=== PATIENT | female | born 1980 | race Caucasian/White ===

== ENCOUNTER → 2018-02-20 14:25 | Outpatient (CLI) | payer BC, SELFPAY ==
[2018-02-24 08:27] LABS: HPV Reflexed? NOT INDICATED
== END ==
PROVIDERS: Visit Provider Obstetrics & Gynecology
DX: Z12.4 Encounter for screening for malignant neoplasm of cervix (principal)
CPT/HCPCS: 88175; G0145

== ENCOUNTER 2018-04-18 09:03 | Emergency (ER) | payer BC, SELFPAY ==
[2018-04-18 09:04] VITALS: BP 129/75; PULSE 93; RESP 16; TEMP 36.8; O2SAT 97; BMI 25.9
--- NOTE | 2018-04-18 09:13 | RAD_ITS ---
STUDY: X-RAY - LUMBAR SPINE REASON FOR EXAM: Female, 37 years old. Low back pain following a fall. TECHNIQUE: 3 view(s) of the lumbar spine were obtained. COMPARISON: None FINDINGS: Normal lumbar lordosis. There is no substantial scoliosis. There is a normal alignment of the vertebrae. Normal vertebral bodies and endplates. Normal disc space heights. The soft tissue structures are unremarkable. RAD/Lumbar Spine 2 or 3 Views IMPRESSION: Normal x-ray examination of the lumbar spine. Electronically Signed: Kade Gaytan MD at 10:30 EDT Tel [phone], Service support ,
--- NOTE | 2018-04-18 09:17 | ED.DCSUM_ITS ---
- ER Visit Summary Date of Service: 04/18/18 Chief Complaint: Lower back and tailbone pain History of Present Illness: The patient is a 37 F on 3 wooden steps on Tuesday. Had sudden onset of low back primarily tailbone pain. No prior history. No prior back surgery. Denies any other injuries. Did not hit her head. No LOC. No neck pain. Physical Examination: Young female no acute distress vital signs are stable afebrile. She does not look septic or toxic. H EENT exam atraumatic. Nontender. C-spine nontender. Lungs clear to auscultation bilaterally. Heart regular rhythm no murmur. Chest wall nontender. Abdomen soft nontender. Pelvic girdle intact. Moving all 4 extremities. Normal range of motion. Nontender. No deformity. Neurovascularly intact. Normal motor strength and sensation of both upper and lower extremities. Back the cervical, thoracic and lumbar spine are nontender except the lower lumbar spine and primarily sacrum and tailbone area are tender palpation. Neurologic exam is normal. No motor deficits. Test Results: LS spine x-ray no acute fracture. 3 views. Also a sacrum coccyx view is done and is negative also. Both read by myself and the radiologist. Emergency Department Course and Treatment: Repeat exam doing well. She does have a bruise on her left buttock but it is not expanding hematoma. This does not need to be drained. Approximately 4 x 3 cm. I discussed all x-ray results of both her and her significant other. Treatment Plan: [place] for pain. Motrin. Ice. Air donut. Disposition: Discharge Impression: Acute fall down steps Contusion of the lumbar spine and primarily coccyx This note was generated with [employer] dictation software. It may contain incorrect words, spelling, and punctuation that were not noted in review of the chart prior to signing ED Disposition - Plan for ED Patient: Chief Complaint: Fall Referrals: Juana Angeles DO [Primary Care Provider] -
--- NOTE | 2018-04-18 09:50 | RAD_ITS ---
STUDY: X-RAY - SACRUM/COCCYX REASON FOR EXAM: Female, 37 years old. Severe low back pain following a fall. TECHNIQUE: 3 view(s) of the sacrum and coccyx were obtained. COMPARISON: None. FINDINGS: Normal bilateral sacroiliac joints. Normal visualized sacral ala and fused sacral bodies. There is an anterior angulation of the coccygeal segments. Normal coccygeal segments. The presacral soft tissue structures are unremarkable. RAD/Sacrum-Coccyx min 2 Views IMPRESSION: No acute abnormality is seen. Electronically Signed: Kade Gaytan MD at 10:24 EDT Tel [phone], Service support ,
--- NOTE | 2018-04-18 11:08 | ED.DEP ---
ED Disposition - Plan for ED Patient: Disposition: Home or Assisted Living Chief Complaint: Fall Instructions: ED Contusion Sacrum Coccyx Prescriptions: Hydrocodone/Acetaminophen [[place] 10-325 Tablet] 1 ea PO Q4H PRN PRN #20 tab PRN Reason: Pain Referrals: Juana Angeles DO [Primary Care Provider] - Additional Instructions: Ice to area. Air donut. Motrin and [place] for pain.
--- NOTE | 2018-04-18 11:11 | DCINST.ED_ITS ---
ED Disposition - Plan for ED Patient: Disposition: Home or Assisted Living Chief Complaint: Fall Instructions: ED Contusion Sacrum Coccyx Prescriptions: Hydrocodone/Acetaminophen [[place] 10-325 Tablet] 1 ea PO Q4H PRN PRN #20 tab PRN Reason: Pain Referrals: Juana Angeles DO [Primary Care Provider] - Additional Instructions: Ice to area. Air donut. Motrin and [place] for pain.
[2018-04-18 11:18] VITALS: RESP 12
== END 2018-04-18 11:18 | disposition home or self-care (01) ==
PROVIDERS: Emergency Provider Emergency Medicine; Family Provider Family Medicine; PCP Family Medicine
DX: S30.0XXA Contusion of lower back and pelvis, initial encounter (principal); W10.9XXA Fall (on) (from) unspecified stairs and steps, initial encounter; Y93.9 Activity, unspecified; Y92.9 Unspecified place or not applicable
CPT/HCPCS: 72100; 72220; 99282

== ENCOUNTER → 2019-05-25 16:08 | Outpatient (CLI) | payer BC, SELFPAY ==
--- NOTE | 2019-05-25 16:13 | US_ITS ---
HISTORY: Left lower quadrant pain for one week. Menses every 3 months on control. 25 transabdominal and 49 endovaginal images. No comparison imaging. Findings: Transabdominal imaging: The urinary bladder is well-distended. Transabdominally the uterus measures 4.7 x 7.7 x 2.9 cm. Transabdominally the endometrial stripe is homogeneous at 6 mm. There are no large masses or fluid collections. The ovaries are not identified. Endovaginal imaging: Prominence of adnexal vasculature suggests multi parity. Initial stripe is homogeneous at 6 mm. Within the dorsum of the uterine fundus there is a 2 x 2 mm echogenic structure that does not cause shadowing consistent with an interface, or perhaps a calcification. Some the axial images it appears this may be within the endometrial canal versus the edge of the endometrium. The right ovary measures 2.5 x 1.2 x 1 cm. Color Doppler imaging suggests probable flow within the right ovarian parenchyma. Pulse-wave Doppler imaging suggests arterial flow. The left ovary is not identified by the green chain offbearer but is the area of patient's pain. US/Pelvic (Non ) IMPRESSION: Normal. Nonvisualization of the left ovary. at 0604 Reported and signed by: Mike Duvall MD Electronically Signed: Mike Duvall MD at 6:03 EDT Tel , Service support ,
--- NOTE | 2019-05-25 16:49 | US_ITS ---
HISTORY: Left lower quadrant pain for one week. Menses every 3 months on control. 25 transabdominal and 49 endovaginal images. No comparison imaging. Findings: Transabdominal imaging: The urinary bladder is well-distended. Transabdominally the uterus measures 4.7 x 7.7 x 2.9 cm. Transabdominally the endometrial stripe is homogeneous at 6 mm. There are no large masses or fluid collections. The ovaries are not identified. Endovaginal imaging: Prominence of adnexal vasculature suggests multi parity. Initial stripe is homogeneous at 6 mm. Within the dorsum of the uterine fundus there is a 2 x 2 mm echogenic structure that does not cause shadowing consistent with an interface, or perhaps a calcification. Some the axial images it appears this may be within the endometrial canal versus the edge of the endometrium. The right ovary measures 2.5 x 1.2 x 1 cm. Color Doppler imaging suggests probable flow within the right ovarian parenchyma. Pulse-wave Doppler imaging suggests arterial flow. The left ovary is not identified by the manager general but is the area of patient's pain. US/Transvaginal Non- IMPRESSION: Normal. Nonvisualization of the left ovary. at 0604 Reported and signed by: Mike Duvall MD Electronically Signed: Mike Duvall MD at 6:03 EDT Tel , Service support ,
== END ==
PROVIDERS: Family Provider Family Medicine; PCP Family Medicine; Referring Provider Family Medicine; Visit Provider Family Medicine
DX: R10.32 Left lower quadrant pain (principal)
CPT/HCPCS: 76830; 76856; 93976

== ENCOUNTER → 2019-05-28 06:49 | Outpatient (CLI) | payer BC, SELFPAY ==
--- NOTE | 2019-05-28 06:51 | BI_ITS ---
MAMMOGRAPHY - BILATERAL SCREENING REASON FOR EXAM: Female, 38 years old. Routine annual screening examination. PERTINENT HISTORY: Mother with breast cancer. Aunt with breast cancer. TECHNIQUE: Digital bilateral breast isabela (3D mammographic acquisition) in the CC and MLO projections. 2-D mediolateral oblique (MLO) and craniocaudad (CC) views of both breasts were obtained. CAD: Full Field Digital Mammography with Computer Added Detection was performed. COMPARISON: Comparison is made with prior study dated December 01, 2016. FINDINGS: Breast Composition: The breasts are heterogeneously dense, which may obscure small masses. I suspect a 1.2 cm x 1.6 cm nodular density in the inferior central portion of the right breast at around the 6:00 radiant. Correlation with ultrasound is recommended. No other significant abnormalities are identified. BI/SCREEN MAMM (CAD) W/ISABELA BILAT IMPRESSION: Question minimal nodular density in the inferior central portion of the right breast and around the 6:00 position of the breast. Correlation with ultrasound is recommended. ASSESSMENT CATEGORY: BIRADS Category 0: Incomplete. Need additional imaging evaluation. A letter regarding these results will be sent to the patient by the facility within 30 days. Approximately 10% of breast cancers are not detected by mammography. A normal mammogram should not delay biopsy of a clinically suspicious abnormality. [id number] Electronically Signed: Kade Gaytan, at 8:57 EDT , Service support ,
== END ==
PROVIDERS: Family Provider Family Medicine; PCP Family Medicine; Referring Provider Obstetrics & Gynecology; Visit Provider Obstetrics & Gynecology
DX: Z12.31 Encounter for screening mammogram for malignant neoplasm of breast (principal)
CPT/HCPCS: 77063; 77067

== ENCOUNTER → 2019-06-04 09:25 | Outpatient (CLI) | payer BC, SELFPAY ==
--- NOTE | 2019-06-04 09:27 | US_ITS ---
STUDY: ULTRASOUND BREAST - RIGHT REASON FOR EXAM: Female, 38 years old. Abnormal screening mammogram. TECHNIQUE: Axial and longitudinal images of the RIGHT breast were performed with a high resolution ultrasound transducer. COMPARISON: Comparison is made with prior mammogram dated May 28, 2019. FINDINGS: RIGHT Breast: The mammographic abnormality corresponds to a 1.1 cm x 1 cm x 0.5 cm cyst with low-level echoes within it at the 6:00 position of the breast at 2 cm from nipple. The margins are slightly irregular. A biopsy is recommended for further evaluation. US/Breast Limited Unilateral IMPRESSION: 1.1 cm x 1 cm x 0.5 cm slightly irregular cystic nodule at the 6:00 position of the breast at 2 cm from nipple. A biopsy is recommended for further evaluation. ASSESSMENT CATEGORY: BIRADS Category 4: Suspicious - Biopsy Should Be Considered. A letter regarding these results will be sent to the patient by the facility within 30 days. Electronically Signed: Kade Gaytan, at 9:29 EDT , Service support ,
== END ==
PROVIDERS: Family Provider Family Medicine; PCP Family Medicine; Referring Provider Obstetrics & Gynecology; Visit Provider Obstetrics & Gynecology
DX: N63.10 Unspecified lump in the right breast, unspecified quadrant (principal)
CPT/HCPCS: 76642

== ENCOUNTER → 2019-06-08 16:08 | Outpatient (CLI) | payer BC, SELFPAY ==
--- NOTE | 2019-06-08 | IMM_PTH ---
PATIENT: JASON LECHUGA LOC: [facility] U#:[id number] AGE/SX: 44/F ROOM: RE06/08/[address]: Dr. Cecilia Alcala MD : 1980 BED: DIS: SPEC #: [id number] RECD: 06/12/19 11:28 STATUS: TEMITOPE REQ #: [id number] ELIZABETH: 06/08/19 00:[address]: Cecilia Alcala DEPT: IMMUNOHISTOCHEMISTRY RECD BY: Samantha Barajas ENTERED: 06/12/19 11:29 SP TYPE: IMMUNO OTHR DR: Dr. Juana Angeles DO Tissues: Right breast, NOS Procedures: CALPONIN-1 (add) CK5-6 (add) CK8 (add) E-CAD (add) HER2 MARCOS (add) KI-67 (add) P53 (add) IN (add) P40 (add) ER (initial) [facility] [address] [address] SPECIMEN INFORMATION: Tissue Source: Right breast tissue Clinical Info: Right breast mass Specimen Number: [id number] CPT code: 05829, 54925 x6, 21131 x3 METHODOLOGY: Deparaffinized sections of prefer/formalin-fixed tissue or PAP/DQ stained slides are incubated with monoclonal/polyclonal antibodies/oligonucleotide probes. Localization is made via biotin free immunoperoxidase method. Appropriate controls are performed and reacted as expected. Results on target cell population are indicated in the following table: RESULTS: ANTIBODY / CLONE RESULT E-Cad (ECH-6) positive CK8 (78upnbI30) positive Calponin-1 (CK937V) negative CK5-6 (D5 & 1684) negative P40 (BC28) negative P53 (DO-7) negative Ki-67 (30-9) positive, low to moderate MORPHOMETRIC ANALYSIS ER (clone 6F11) >95%, strong intensity IN (clone 16/1E2) 32%, weak intensity Her-2Neu (clone CB11) 1+, focal The prognostic test for HER2 is performed on formalin-fixed paraffin embedded tissue. A 3+ (positive) staining pattern is defined as intense, homogeneous, complete, circumferential membranous staining in >10% of contiguous tumor cells. A similar weak (2+) staining pattern is interpreted as equivocal. FABIOLA follow-up testing is recommended for all equivocal cases. Positivity/negativity for ER/IN is reported if > or < 1% of the tumor cells are immuno- reactive, respectively. The ASCO/CAP criteria is used for scoring. Reference: Journal of Clinical Oncology, 2013; 31:9966-9407 & 2010; 16:6363-6802. Duration of fixation: 76 Hrs; Sample Adequate: Yes. These assays have not been validated on decalcified tissues. Results should be interpreted with caution given the likelihood of false negativity on decalcified specimens. These tests were developed and their performance characteristics determined by [facility]. They may not have been cleared or approved by the U.S. Food and Drug Administration. The FDA has determined that such clearance or approval is not necessary. The above immunohistochemical/dualISH markers are ordered and reviewed by the Pathologist. INTERPRETATION: Right breast, core biopsy: Invasive ductal carcinoma, nuclear grade 2. Positive for estrogen receptors (favorable prognostic indicator). Positive for progesterone receptors (favorable prognostic indicator). Negative for overexpression of RVH0upp. SJ:tamra 06/13/19
--- NOTE | 2019-06-08 15:20 | BRBX_PTH ---
PATIENT: JASON LECHUGA LOC: [facility] U#:[id number] AGE/SX: 44/F ROOM: RE06/08/[address]: Dr. Cecilia Alcala MD : 1980 BED: DIS: SPEC #: [id number] RECD: 06/08/19 16:06 STATUS: TEMITOPE SIMONE #: [id number] ELIZABETH: 06/08/19 15:[address]: Cecilia Alcala DEPT: SURGICAL PATHOLOGY RECD BY: Grecia Almonte ENTERED: 06/11/19 08:52 SP TYPE: BREAST BX OTHR DR: Dr. Juana Angeles DO Tissues: Right breast, NOS Procedures: Surgery Specimen Level IV HEADER OPERATION: Right breast biopsy PRE-OP DIAGNOSIS: Righty breast mass TISSUE SUBMITTED: Right breast tissue ISCHEMIC TIME: 1 minute FIXATION TIME: 76 hours MICROSCOPIC DIAGNOSIS Right breast tissue, core biopsy: Invasive ductal carcinoma, nuclear grade 2 (0.5 cm in greatest dimension). See comment. DIMITRY:tamra 06/12/19 COMMENT Immunohistochemistry ([id number]) supports the above diagnosis. ER/NV/Qnt0pvs studies are being performed on sections of tumor and the results from this study will be reported separately ([id number]). Case has been reviewed in consultation with Dr. Carr who concurs with the above diagnosis. IDC:AM MICROSCOPIC DESCRIPTION Slides are reviewed. GROSS DESCRIPTION Received in fixative is one container labeled with the patient's name and designated right breast. The specimen consists of multiple elongated fragments of rodriguez-yellow fibroadipose tissue that in aggregate measure 1.5 x 0.6 x 0.1 cm. The entire specimen is submitted in one cassette. / DIMITRY:tamra 06/11/19 TC:0 CPT: 66867 ADDENDUM ADDENDUM ADDENDUM ADDENDUM ADDENDUM ADDENDUM ADDENDUM ADDENDUM ADDENDUM 07/02/2019 10:03 ADDENDUM 07/02/2019 10:03 ADDENDUM 07/02/2019 10:03 ADDENDUM 07/02/2019 10:03 ADDENDUM 07/02/2019 10:03 This addendum is added to incorporate an outside pathology consultation report. The case was examined at [facility] (#[id number]) and the following diagnosis was rendered. Right breast, core biopsy: Invasive ductal carcinoma, provisional histologic grade 2. Please see complete above mentioned consultation report in EMR
[2019-06-08 15:21] VITALS: BMI 25.9
== END ==
PROVIDERS: Family Provider Family Medicine; PCP Family Medicine; Referring Provider Surgery; Visit Provider Surgery
DX: C50.911 Malignant neoplasm of unspecified site of right female breast (principal)
CPT/HCPCS: 88305; 88341; 88342

== ENCOUNTER → 2019-06-11 06:36 | Outpatient (CLI) | payer BC, SELFPAY ==
[2019-06-08 15:21] VITALS: BMI 25.9
--- NOTE | 2019-06-11 06:40 | CT_ITS ---
STUDY: CT ABDOMEN AND PELVIS WITH CONTRAST REASON FOR EXAM: Female, 38 years old. Left lower quadrant pain RADIATION DOSAGE (If Supplied By Facility): CTDIvol = ( 12.71 ) mGy, DLP = ( 807.84 ) mGycm TECHNIQUE: Transaxial 3.75 mm images were obtained from the dome of the diaphragm to the symphysis pubis with oral contrast. IV/Oral Isovue 300 100CC was administered. Sagittal and coronal images were reconstructed. Individualized dose optimization techniques were used for this CT. COMPARISON: None. FINDINGS: The visualized lung bases are unremarkable. The visualized portions of the heart are within normal limits. Normal liver. Normal gallbladder and extrahepatic biliary system. Normal spleen. Normal pancreas. Normal bilateral adrenal glands. Normal right kidney. Normal left kidney. Normal visualized stomach. Normal small intestine. Normal colon. The appendix is visualized and appears normal. Normal abdominal aorta. Normal inferior vena cava. Normal retroperitoneum. Normal urinary bladder. Uterus is bulky in contour. No defined mass detected. Normal appearance of adnexa. Normal abdominal wall. Sclerosis along the sacroiliac joint iliac site possible ileitis condensans. Focal sclerosis in the left iliac without cortical destruction of [address]/Abdomen/Pelvis WITH Contrast IMPRESSION: There is no acute abdomen and pelvic pathology. 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 Bulky contour of the uterus, however no defined mass detected. If needed further details can be obtained with ultrasound. Electronically Signed: Joselyn Kaur MD at 7:18 EST , Service support ,
== END ==
PROVIDERS: Family Provider Family Medicine; PCP Family Medicine; Referring Provider Family Medicine; Visit Provider Family Medicine
DX: R10.32 Left lower quadrant pain (principal)
CPT/HCPCS: 74177; Q9967

== ENCOUNTER → 2019-06-20 10:16 | Outpatient (CLI) | payer BC, SELFPAY ==
[2019-06-08 15:21] VITALS: BMI 25.9
--- NOTE | 2019-06-20 10:18 | MRI_ITS ---
STUDY: BILATERAL BREAST MR WITHOUT AND WITH CONTRAST REASON FOR EXAM: Female, 38 years old. Right breast cancer diagnosed by biopsy June 08, 2019. History of breast cancer in mother in her sixth decade. TECHNIQUE: Multi-sequence multi-echo imaging of both breasts was performed with a dedicated breast coil. T1-weighted and T2-weighted images were performed before the administration of contrast. T1-weighted images were also performed after the administration of IV Dotarem 17 without complications. COMPARISON: Ultrasound of the right breast dated June 04, 2019, screening mammogram of May 28, 2019 and screening mammogram of December 01, 2016. FINDINGS: RIGHT BREAST: The breast tissue is heterogeneously dense with minimal background enhancement. Irregular enhancing mass at 6:00 position of the right breast 2 cm from the nipple corresponding to the mammographic and ultrasonographic abnormality measuring 1 cm x 0.5 cm x 0.7 cm. No abnormal adenopathy is present. LEFT BREAST: The breast tissue is heterogeneously dense with minimal background enhancement. There are no abnormal enhancing masses or areas of non-mass enhancement in the left breast. No adenopathy is present. There is no abnormality in the visualized regions of the chest or liver. MRI/Breast Bilateral W/O and W IMPRESSION: Irregular enhancing mass corresponding to the mammographic and ultrasonographic findings. Left breast normal. No adenopathy. CATEGORY: BIRADS Category 6: Known Biopsy-Proven Malignancy - Appropriate Action Should Be Taken. A letter regarding these results will be sent to the patient by the facility within 30 days. Electronically Signed: Joes Busby MD at 13:31 EST , Service support ,
== END ==
PROVIDERS: Family Provider Family Medicine; PCP Family Medicine; Referring Provider Surgery; Visit Provider Surgery
DX: C50.919 Malignant neoplasm of unspecified site of unspecified female breast (principal)
CPT/HCPCS: 77049; A9575; A4216; C8908

== ENCOUNTER → 2019-06-21 15:38 | Outpatient (CLI) | payer BC, SELFPAY ==
[2019-06-21 09:07] VITALS: BMI 25.9
[2019-06-21 17:31] LABS: Thyroid Stim Hormone (TSH) 0.97 uIU/mL (0.358-3.74)
== END ==
PROVIDERS: Family Provider Family Medicine; PCP Family Medicine; Visit Provider Obstetrics & Gynecology
DX: R10.814 Left lower quadrant abdominal tenderness (principal); N85.2 Hypertrophy of uterus
CPT/HCPCS: 36415; 83001; 84443

== ENCOUNTER → 2020-04-10 | Outpatient (CLI) | payer BC, SELFPAY ==
[2019-06-25 15:06] VITALS: BMI 25.0
[2019-06-26 15:17] VITALS: BMI 25.3
[2020-04-16 13:15] LABS: HPV Reflexed? NOT INDICATED
== END | disposition home or self-care (01) ==
PROVIDERS: PCP Family Medicine; Visit Provider Obstetrics & Gynecology
DX: Z12.4 Encounter for screening for malignant neoplasm of cervix (principal)
CPT/HCPCS: 88175; G0145

== ENCOUNTER → 2020-05-27 10:14 | Outpatient (CLI) | payer BC, SELFPAY ==
[2019-06-25 15:06] VITALS: BMI 25.0
[2019-06-26 15:17] VITALS: BMI 25.3
[2020-05-27 12:02] LABS: Internal QC Validated? YES +Cl - CLEAR BKGD; Pregnancy, Serum, hCG Quali. NEGATIVE Negative
[2020-05-27 12:29] LABS: AST(SGOT) 19 U/L (15-37); Alanine Aminotransfer ALT/SGPT 33 U/L (13-56); Cholesterol 161 mg/dL (200); High Density Lipoprotein 60 mg/dL; Triglycerides 202 mg/dL; Very Low Density Lipoprotein 40 mg/dL (5-40)
== END ==
PROVIDERS: PCP Family Medicine; Referring Provider Dermatology; Visit Provider Dermatology
DX: L70.0 Acne vulgaris (principal); Z79.899 Other long term (current) drug therapy
CPT/HCPCS: 36415; 80061; 84450; 84460; 84703

== ENCOUNTER 2021-08-12 15:26 | Outpatient (CLI) | payer BC, SELFPAY ==
[2019-06-25 15:06] VITALS: BMI 25.0
--- NOTE | 2021-08-12 | EMB_PTH ---
PATIENT: JASON LECHUGA LOC: [facility] U#:[id number] AGE/SX: 40/F ROOM: RE08/12/[address]: Dr. Greyson Santos MD : 1980 BED: DIS: 08/12/2021 SPEC #: [id number] RECD: 08/12/21 15:56 STATUS: TEMITOPE REEron #: [id number] ELIZABETH: 08/12/21 00:[address]: Greyson Santos DEPT: SURGICAL PATHOLOGY RECD BY: Akash Pires ENTERED: 08/13/21 10:40 SP TYPE: ENDOM BX/C ELIEL DR: Dr. Juana Angeles, DO Tissues: Endometrium, NOS Procedures: Surgery Specimen Level IV HEADER OPERATION: Endometrial biopsy PRE-OP DIAGNOSIS: Abnormal uterine bleeding TISSUE SUBMITTED: Endometrial biopsy MICROSCOPIC DIAGNOSIS Endometrial biopsy: Interval/early secretory endometrium. SJ:tamra 08/14/2021 MICROSCOPIC DESCRIPTION Slides are reviewed. GROSS DESCRIPTION Received in fixative is one container labeled with the patient's name and designated endometrial biopsy. The specimen consists of multiple irregular fragments of light to dark rodriguez soft tissue that in aggregate measure 2 x 1 x 0.2 cm. The specimen is totally submitted in one cassette. / AM:tamra 08/13/21 TC:4 CPT: 63342
[2021-08-17 13:43] LABS: HPV Reflexed? NOT INDICATED
== END 2021-08-12 23:59 | disposition short-term general hospital (02) ==
LOC: LABSPEC 15:28
PROVIDERS: PCP Family Medicine; Visit Provider Obstetrics & Gynecology
DX: N93.9 Abnormal uterine and vaginal bleeding, unspecified (principal)
CPT/HCPCS: 88175; 88305; G0145

== ENCOUNTER → 2021-12-07 | Outpatient (CLI) | payer BC, SELFPAY ==
[2019-06-25 15:06] VITALS: BMI 25.0
--- NOTE | 2021-12-07 08:44 | NEURO ---
NCS and/or EMG Patient Report Ordering Doctor: Dwayne Lemos DATE OF SERVICE: 12/07/21 Indication: Intermittent tingling and numbness of the left upper extremity for the past one month. Symptoms are improving following a steroid taper. Evaluate for cervical radiculopathy. Findings: Nerve conduction studies were performed in the left upper extremity. The left median motor study recording the abductor pollicis brevis showed a normal amplitude, borderline distal latency and normal conduction velocity. The left ulnar motor study recording the abductor digiti minimi showed a normal amplitude, normal distal latency and normal conduction velocity. No conduction block or focal slowing was present across the elbow. Left median ulnar lumbrical / interosseous motor latencies showed no significant difference. The left median sensory response recording digit two showed a normal amplitude, latency and conduction velocity. The left ulnar sensory response recording digit five showed a normal amplitude, latency and conduction velocity. The left radial sensory response recording over the extensor snuff box showed a normal amplitude, latency and conduction velocity. Needle EMG of the left upper extremity and cervical paraspinal muscles was performed. No denervation was seen in any muscle. All motor unit morphology, activation and recruitment patterns were normal. Impression: This is a normal study. There is no electrophysiologic evidence of cervical radiculopathy in the left upper extremity. In addition, there was no electrophysiologic evidence of median or ulnar entrapment neuropathy, or brachial plexopathy in the left upper extremity. Please note: the electrodiagnosis of radiculopathy is made on the basis of excluding peripheral nerve lesions on nerve conduction studies and the needle EMG demonstrating denervation and/or reinnervation in the distribution of one or more nerve roots (i.e., acute and/or chronic axonal loss). Thus, electrodiagnostic studies are insensitive in detecting radiculopathy in the absence of axonal loss (e.g., in the setting of compression resulting in intermittent ischemia or mechanical deformation; or demyelination without axonal loss). Thus, clinical correlation is required in the interpretation of this negative electrodiagnostic study for radiculopathy. Bruce Everett D.O. Multi Select Codes Neurology Neurology Interp Codes: 34157-51 Musc test done w/n test comp (interp) and 64141-71 Nrv cndj test 7-8 studies (interp)
== END | disposition home or self-care (01) ==
LOC: PSN 07:19
PROVIDERS: PCP Family Medicine; Referring Provider Family Medicine; Visit Provider Family Medicine
DX: R20.0 Anesthesia of skin (principal); R20.2 Paresthesia of skin
CPT/HCPCS: 95886; 95910

== ENCOUNTER → 2022-06-17 | Outpatient (CLI) | payer BC, SELFPAY ==
[2019-06-25 15:06] VITALS: BMI 25.0
--- NOTE | 2022-06-17 15:00 | EMB_PTH ---
PATIENT: JASON LECHUGA LOC: [facility] U#:[id number] AGE/SX: 41/F ROOM: RE06/17/[address]: Dr. Aleksandra Torrez DO : 1980 BED: DIS: 06/17/2022 SPEC #: [id number] RECD: 06/17/22 15:57 STATUS: TEMITOPE REQ #: [id number] ELIZABETH: 06/17/22 15:[address]: Aleksandra Torrez DEPT: SURGICAL PATHOLOGY RECD BY: Viky Jacinto ENTERED: 06/18/22 07:48 SP TYPE: ENDOM BX/C ELIEL DR: Dr. Dwayne Lemos MD Tissues: Endometrium, NOS Procedures: Surgery Specimen Level IV HEADER OPERATION: Endometrial biopsy PRE-OP DIAGNOSIS: Abnormal uterine bleeding TISSUE SUBMITTED: Endometrial biopsy MICROSCOPIC DIAGNOSIS Endometrial biopsy: Proliferative endometrium. /SJ 06/21/22 MICROSCOPIC DESCRIPTION Slides are reviewed. GROSS DESCRIPTION Received is one container labeled with the patient's name and not further designated. The specimen consists of multiple fragments of hemorrhagic soft tissue that in aggregate measure 2.5 x 2 x 0.2 cm. The specimen is totally submitted in one cassette. / SJ:tamra 06/18/2022 TC:4 CPT: 78136
== END | disposition home or self-care (01) ==
LOC: LABSPEC 15:40
PROVIDERS: PCP Family Medicine; Visit Provider Student in an Organized Health Care Education/Training Program
DX: N93.9 Abnormal uterine and vaginal bleeding, unspecified (principal)
CPT/HCPCS: 88305

== ENCOUNTER 2022-06-24 10:24 | Day surgery (SDC) | payer BC, SELFPAY ==
[2019-06-25 15:06] VITALS: BMI 25.0
[2022-06-21 17:24] LABS: Hematocrit 36.8 % (37-47); Hemoglobin 12.8 g/dL (12.0-15.0); Mean Corp Hgb Conc 34.8 g/dL (32-36); Mean Platelet Vol. 9.8 fl (6.2-12.0); Platelet Count 240 K/mm3 (150-450); RBC Distribution Width CV 11.6 % (11.6-14.6); RBC Distribution Width SD 39.5 fl (35.1-43.9); White Blood Count 6.8 K/mm3 (4.4-11.0)
[2022-06-21 17:34] LABS: Follicle Stimulating Hormone 6.7 mIU/mL; Luteinizing Hormone 5.1 mIU/mL
[2022-06-24] VITALS (7 sets, daily range): BP systolic 103–107; BP diastolic 62–78; PULSE 66–70; RESP 15–16; TEMP 36.4–36.9; O2SAT 99–100; BMI 24.6
--- NOTE | 2022-06-24 | EMB_PTH ---
PATIENT: JASON LECHUGA LOC: [facility] U#:[id number] AGE/SX: 41/F ROOM: RE06/24/[address]: Dr. Aleksandra Torrez DO : 1980 BED: DIS: 06/24/2022 SPEC #: [id number] RECD: 06/24/22 14:39 STATUS: TEMITOPE REQ #: [id number] ELIZABETH: 06/24/22 00:[address]: Aleksandra Torrez DEPT: SURGICAL PATHOLOGY RECD BY: Akash Pires ENTERED: 06/25/22 09:59 SP TYPE: ENDOM BX/C ELIEL DR: Dr. Dwayne Lemos MD Tissues: Endometrium, NOS Procedures: Surgery Specimen Level IV HEADER OPERATION: Hysteroscopy, dilation and curettage PRE-OP DIAGNOSIS: Abnormal uterine bleeding TISSUE SUBMITTED: Endometrial curettings MICROSCOPIC DIAGNOSIS Endometrial curettings: Proliferative endometrium. SJ:tamra 06/28/2022 MICROSCOPIC DESCRIPTION Slides are reviewed. GROSS DESCRIPTION Received in fixative is one container labeled with the patient's name and designated endometrial curettings. The specimen consists of multiple fragments of hemorrhagic soft tissue that in aggregate measure 4 x 3 x 0.2 cm. The specimen is totally submitted in two cassettes. / SJ:tamra 06/25/2022 TC:4 CPT: 67605
--- NOTE | 2022-06-24 07:06 | PCM.HP.BLA ---
History and Physical Date of Admission: 06/24/22 HPI: 41-year-old female with abnormal uterine bleeding on tamoxifen. Patient had normal endometrial biopsy, however with tamoxifen use and need to resume, decision for hysteroscopy, dilation and curettage was made. Denies headache or vision changes, chest pain or shortness of breath, nausea or vomiting, diarrhea or constipation, fevers or chills. [employer] history: Medical history: 1. History of breast cancer diagnosed in 2019 Surgical history: 1. Right breast lumpectomy 2019 Medications: 1. Tamoxifen (has been off since bleeding started) Allergies: Sulfa causes hives Family history: Noncontributory Social history: Denies tobacco, alcohol, drug use Review of system: Negative otherwise stated above Physical exam Vitals BP 106/74, HR 66, RR 15, Temp 98.4F, O2 saturation 99% on RA General: No acute distress HEENT: Normal cephalic/atraumatic, PERRLA Cardiac: Regular rate and rhythm no murmur rubs or gallops Respiratory: Clear to auscultation bilaterally Abdomen: Soft, nontender, nondistended Extremities: No edema Neurologic: No focal deficits, cranial nerves II through XII grossly intact Musculoskeletal: Strength out of 5 throughout all extremities Assessment/plan: 41-year-old female on tamoxifen with abnormal uterine bleeding plan for hysteroscopy, dilation curettage. All risk, benefits, alternatives discussed with the patient. Risk include but not limited to: Risk bleeding twin transfusion, infection, injury to surrounding tissue and bowel/bladder/uterine perforation, VTE, ICU admission. Patient were consented.
[2022-06-24] MEDS: Lactated Ringers 1,000 ML 125 ML IV (10:35)
[2022-06-24 10:58] LABS: Internal QC Validated? YES +Cl - CLEAR BKGD; Pregnancy, Urine Negative Negative
--- NOTE | 2022-06-24 12:00 | PCM.OPRPT ---
Report of Operation Date of Procedure: 06/24/22 Pre-Operative Diagnosis: Abnormal uterine bleeding on tamoxifen Post-Operative Diagnosis: Abnormal uterine bleeding on tamoxifen Surgery/Procedure Performed:: Hysteroscopy, dilation curettage Description of Surgical Findings:: Normal-appearing external genitalia. No endometrial polyp or fibroid. Slightly thickened endometrial lining. Minimal uterine descensus. Type of Anesthesia: MAC Specimen's removed: Endometrial curettings Estimated Blood Loss (mL): 5 cc Fluids Replaced: 500cc Description of Procedure: Indication/risk/benefits: 41-year-old female with abnormal uterine bleeding on tamoxifen plan for hysteroscopy, dilation curettage. All risk, benefits, alternative discussed with the patient. Risk include but are not limited to: Risk of bleeding twin transfusion, infection, injury to surrounding tissue including bowel/bladder/uterine perforation, VTE, ICU admission. Patient aware and consented. Procedure: Patient taken to the operating room and MAC anesthesia induced. Patient placed in dorsal lithotomy position and prepped and draped in the usual sterile fashion. Weighted speculum placed in posterior vagina and anterior lip of the cervix grasped with Allis clamp. Cervix gradually dilated. Hysteroscope placed through the cervical canal with inspection of the endometrial cavity noting findings stated above. Hysteroscope removed. Curettage completed in 360 degree manner. Cervix slightly friable with oozing. Hemostatic with pressure and Monsel's. Weighted speculum removed and Allis clamp removed. At the end of procedure all needle, lap, sponge counts were correct. Urine output: 30cc Complications None
--- NOTE | 2022-06-24 12:01 | DCINST_ITS ---
Discharge Instructions Diet Discharge Diet: No restrictions Activity Discharge Activity: Return to Normal Activity and May Shower May resume sexual activity in: 2 weeks Weight Bearing Status: Weight bearing as tolerated Lifting Restrictions: None Dressing / Incision Call your doctor if you observe: Fever of 101 or Higher, Change in Color, Inability to urinate, Using more than 1 pad per hour, Shortness of breath, Dizziness, Swelling in the ankles, Chest pain and Calf discomfort Follow Up Care Please Follow Up With: Aleksandra Torrez DO When: 1-2 week postoperative visit Test Results: Test results from this visit will be discussed in further detail at your follow- up appointment, if applicable. Discharge Plan Admission Primary Reason for Your Visit: Dilation and curettage Attending Provider: Aleksandra Torrez Primary Care Provider: Dwayne Lemos Discharge Orders/Prescriptions Prescriptions: New oxycodone 5 mg tablet 5 mg PO Q6H PRN (Reason: pain (scale score 7-10)) 1 Days Qty: 4 0RF Referrals / Follow Up: Dwayne Lemos MD [Primary Care Provider] - Disposition Disposition (needs filled in before D/C Order can be placed): Home, Self Care
[2022-06-24] MEDS: FERRIC SUBSULFATE 8 GM SOLN (12:27)
[2022-06-24] MEDS: HYDROcodone Bitartrate/Apap 5/325 Tablet PO (13:30)
== END 2022-06-24 14:16 | disposition home or self-care (01) ==
LOC: SDC 10:27 → AC 10:30
PROVIDERS: Anesthesiology; PCP Family Medicine; Referring Provider Student in an Organized Health Care Education/Training Program; Visit Provider Student in an Organized Health Care Education/Training Program
PROC: 0UDB8ZZ Extraction of Endometrium, Via Natural or Artificial Opening Endoscopic (ICD-10-PCS; CPT 58558; principal; 2022-06-24 11:45)
DX: N93.9 Abnormal uterine and vaginal bleeding, unspecified (principal)
CPT/HCPCS: 58558; 00952; 36415; 81025; 83001; 83002; 85027; 86850; 86900; 86901; 88305; J7120; J2405